=== PATIENT | female | born 1995 | race Caucasian/White ===

== ENCOUNTER 2023-08-05 16:34 | Emergency (ER) | payer OTHER ==
[2023-08-05] MEDS ORDERED: predniSONE 20 MG TABLET (UD) PO ONE (16:52)
[2023-08-05] MEDS ORDERED: predniSONE 20 MG TABLET (UD) ONE (16:56)
== END 2023-08-05 17:10 | disposition home or self-care (01) ==
LOC: FER 16:34
DX: R05.9 Cough, unspecified (principal); J02.9 Acute pharyngitis, unspecified; J45.901 Unspecified asthma with (acute) exacerbation
CPT/HCPCS: 99283-25